=== PATIENT | female | born 1985 | race Two or more races ===

== ENCOUNTER 2017-08-24 08:09 | Emergency (ER) | payer BC, MEDICAID ==
[~2017-08-24] VITALS: Ht 154.9 cm; Wt 61.7 kg
[2017-08-24 08:14] VITALS: Ht 154.9 cm; Wt 61.7 kg
[2017-08-24 08:34] VITALS: BP 131/103
== END 2017-08-24 08:53 | disposition home or self-care (01) ==
LOC: ED 08:09
DX: R30.0 Dysuria (principal); R19.7 Diarrhea, unspecified